=== PATIENT | male | born 1985 | race Hispanic/Latino ===

== ENCOUNTER 2018-09-23 00:03 | Emergency (ER) | payer MEDICAID, MEDICARE ==
[2018-09-23 00:28] VITALS: TEMP 98.8
[2018-09-23] MEDS ORDERED: Sodium Chloride 0.9% 1,000 ML IV ONE (00:29)
--- NOTE | 2018-09-23 00:58 | C.PDOC ---
History Of Present Illness 33 y/o male presents to the ED for evaluation after experiencing a seizure earlier today. The patient states he has a PMHx of seizure and usually has one about once a month. After this seizure the patient reports feeling light-headed, which is not a usual symptom he experiences after his seizures, prompting ED visit. He denies any headache or LOC. Time Seen by Provider: 09/23/18 00:21 Chief Complaint (Nursing): Altered Mental Status History Per: Patient History/Exam Limitations: None Onset/Duration Of Symptoms: Hrs Recent travel outside of the [place]: No Associated Symptoms: denies: Headache Past Medical History Reviewed: Historical Data, Nursing Documentation, Vital Signs Vital Signs: Last Vital Signs Temp 98.8 F 09/23/18 00:08 Pulse 64 09/23/18 00:08 Resp 18 09/23/18 00:08 BP 158/97 H 09/23/18 00:08 Pulse Ox 99 09/23/18 00:08 - Medical History PMH: Seizures Other Surgeries: Orthopedic surgery Family History: States: Unknown Family Hx - Social History Hx Alcohol Use: No Hx Substance Use: No - Immunization History Hx Tetanus Toxoid Vaccination: No Hx Influenza Vaccination: No Hx Pneumococcal Vaccination: No Review Of Systems Except As Marked, All Systems Reviewed And Found Negative. Constitutional: Negative for: Fever, Chills Neurological: Positive for: Other (light-headed). Negative for: Headache Physical Exam - Physical Exam Appears: Non-toxic, No Acute Distress, Other (Anxious, verbal) Skin: Warm, Dry Head: Atraumatic, Normacephalic Eye(s): right: Other (stable right eye strabismus) Neck: Supple Chest: Symmetrical Cardiovascular: Rhythm Regular, No Murmur Respiratory: No Rales, No Rhonchi, No Wheezing Gastrointestinal/Abdominal: Soft, No Tenderness, No Distention Back: No CVA Tenderness Extremity: Normal ROM Extremity: Bilateral: Normal Color And Temperature, Normal ROM Neurological/Psych: Other (Awake, alert and oriented ) ED Course And Treatment O2 Sat by Pulse Oximetry: 99 (RA) Pulse Ox Interpretation: Normal Medical Decision Making Medical Decision Making: typical seizure, usually once/month good compliance with 3 meds defers w/u for Xanax PO for anxiety as he is far from home reassured. normal exam. Disposition Doctor Will See Patient In The: Office Counseled Patient/Family Regarding: Studies Performed, Diagnosis - Disposition Referrals: [facility] [Outside] [facility] [Outside] [facility] [Outside] Disposition: HOME/ ROUTINE Disposition Time: 00:58 Condition: GOOD Additional Instructions: continue normal anti-seizure meds outpatient follow up with out Clinic as needed. Instructions: Epilepsy in Adults Forms: [facility] (Danish) - Clinical Impression Clinical Impression: Seizure disorder - Scribe Statement The provider has reviewed the documentation as recorded by the Scribe Provider Attestation: Suzette Lorenzo All medical record entries made by the Scribe were at my direction and personally dictated by me. I have reviewed the chart and agree that the record accurately reflects my personal performance of the history, physical exam, medic al decision making, and the department course for this patient. I have also personally directed, reviewed, and agree with the discharge instructions and disposition.
[2018-09-23 01:04] VITALS: BP 140/80; PULSE 80; RESP 14
[2018-09-23 03:56] VITALS: O2SAT 99
== END 2018-09-23 01:04 | disposition home or self-care (01) ==
LOC: C.ER 00:03
DX: G40.909 Epilepsy, unspecified, not intractable, without status epilepticus (principal)